=== PATIENT | male | born 1985 | race African-American/Black ===

== ENCOUNTER 2016-11-01 23:32 | Emergency (ER) | payer OTHER ==
[~2016-11-01] VITALS: Ht 172.7 cm; Wt 98.7 kg
[2016-11-02 00:16] LABS: ADD MIUA? YES; BILIRUBIN NEGATIVE; BLOOD SMALL; COLOR YELLOW ((YELLOW)); GLUCOSE (STRIP) NEGATIVE; KETONES 5; LEUKOCYTES NEGATIVE; NITRITE NEGATIVE; PROTEIN (STRIP) NEGATIVE; SPECIFIC GRAVITY 1.027 (1.000-1.030); UROBILINOGEN 0.2 MG/DL (0.2-1.0)
[2016-11-02 00:29] LABS: BACTERIA NONE SEEN /HPF; EPITHELIAL CELLS RARE /HPF; MUCUS TRACE /LPF; UCUL ADDED? NO; WHITE BLOOD CELLS 0-5 /HPF (0-5)
[2016-11-02 00:35] VITALS: BP 172/93
[2016-11-04 13:24] LABS: CHLAMYDIA TRACHOMATIS NEGATIVE; NEISSERIA GONORRHOEAE NEGATIVE
== END 2016-11-02 00:43 | disposition home or self-care (01) ==
LOC: EME 23:32
PROVIDERS: Physician Assistant
DX: R36.9 Urethral discharge, unspecified (principal)
CPT/HCPCS: 81003; 87491; 87591; 99281; 99283